=== PATIENT | female | born 1950 | race Caucasian/White ===

== ENCOUNTER 2018-07-30 22:24 | Emergency (ER) | payer OTHER ==
[2018-07-30 22:53] VITALS: BP 145/73; PULSE 66; TEMP 97.8; BMI 32.1
[2018-07-30] MEDS ORDERED: ONDANSETRON 4 MG/2 ML VIAL IVPUSH STA (23:53)
[2018-07-30] MEDS ORDERED: SODIUM CHLORIDE 1,000 ML IV STA (23:53)
--- NOTE | 2018-07-30 23:53 | PDOC ---
History of Present Illness - General History Source: Patient Exam Limitations: No Limitations - History of Present Illness Initial Comments: 07/30/18 23:54 The patient is a 67 year old female with a significant past medical history of hypertension who reports to the emergency department with nausea and vomiting for 2 days. The patient reports that she began to experience her onset of nausea yesterday while at home. She states that she had one episode of vomiting. The patient states that her symptoms worsened today and is associated by lower left quadrant abdominal pain. The patient reports that today she had 4 episodes of vomiting. She reports some associated chills with her symptoms. The patient denies any other symptoms. She denies any fever, diarrhea, constipation or urinary symptoms. She denies any chest pain, shortness of breath, headache or dizziness. She denies any other complaints. <Dre Whalen - Last Filed: 07/30/18 23:54> <Yari Briceno - Last Filed: 07/31/18 02:53> - General Chief Complaint: Nausea/Vomiting Stated Complaint: VOMITING Time Seen by Provider: 07/30/18 23:31 Past History <Dre Whalen - Last Filed: 07/30/18 23:54> - Suicide/Smoking/Psychosocial Hx Smoking History: Never smoked Have you smoked in the past 12 months: No Information on smoking cessation initiated: No Hx Alcohol Use: No Drug/Substance Use Hx: No <Yari Briceno - Last Filed: 07/31/18 02:53> - Past Medical History Allergies/Adverse Reactions: Allergies Allergy/AdvReac Type Severity Reaction Status Date / Time No Known Allergies Allergy Verified 07/30/18 22:54 Home Medications: Ambulatory Orders Acetaminophen [Mapap] 1,000 mg PO DAILY PRN 07/30/18 Atenolol [Tenormin -] 50 mg PO DAILY 07/30/18 Calcium Carbonate [Calcium] 1,000 mg PO DAILY 07/30/18 Cholecalciferol (Vitamin D3) [Vitamin D3] 1,000 unit PO DAILY 07/30/18 Levothyroxine [Synthroid -] 75 mcg PO SUMOTUWE 07/30/18 Levothyroxine [Synthroid -] 100 mcg PO THFRSA 07/30/18 Lisinopril [Prinivil -] 40 mg PO DAILY 01/15/19 Ondansetron [Zofran -] 8 mg PO TID PRN #21 tablet 07/31/18 Review of Systems - Review of Systems Able to Perform ROS?: Yes Comments:: 07/30/18 23:56 CONSTITUTIONAL:(+)chills. Absent: fever, no fatigue EYES: Absent: visual changes ENT: Absent: ear pain, no sore throat CARDIOVASCULAR: Absent: chest pain, no palpitations RESPIRATORY: Absent: cough, no SOB GI:(+)abdominal pain, nausea, vomiting Absent: no constipation, no diarrhea GENITOURINARY: Absent: dysuria, no frequency, no hematuria MUSKULOSKELETAL: Absent: back pain, no arthralgia, no myalgia SKIN: Absent: rash NEURO: Absent: headache <Dre Whalen - Last Filed: 07/30/18 23:54> *Physical Exam - Vital Signs Last Vital Signs Temp Pulse Resp BP Pulse Ox 97.8 F 66 19 145/73 98 07/30/18 22:24 07/30/18 22:24 07/30/18 22:24 07/30/18 22:24 07/30/18 22:24 - Physical Exam Comments: 07/30/18 23:56 GENERAL: Well-appearing, well-nourished. No apparent distress. HEENT: Normocephalic, atraumatic. PERRL, EOM intact. CARDIOVASCULAR: Normal S1, S2. Regular rate and rhythm. PULMONARY: Clear to auscultation bilaterally. ABDOMEN: (+)LLQ pain Soft, non-distended, non-tender. EXTREMITIES: Normal ROM in all four extremities. No gross deformities. SKIN: Warm, dry. No rash NEUROLOGICAL: No focal neurological deficits. <Dre Whalen - Last Filed: 07/30/18 23:54> - Vital Signs Last Vital Signs Temp Pulse Resp BP Pulse Ox 97.8 F 66 19 145/73 98 07/30/18 22:24 07/30/18 22:24 07/30/18 22:24 07/30/18 22:24 07/30/18 22:24 <Yari Briceno - Last Filed: 07/31/18 02:53> Moderate Sedation - Procedure Monitoring Vital Signs: Procedure Monitoring Vital Signs Temperature 97.8 F 07/30/18 22:24 Pulse Rate 66 07/30/18 22:24 Respiratory Rate 07/30/18 22:24 Blood Pressure 145/73 07/30/18 22:24 O2 Sat by Pulse Oximetry (%) 98 07/30/18 22:24 <Dre Whalen - Last Filed: 07/30/18 23:54> - Procedure Monitoring Vital Signs: Procedure Monitoring Vital Signs Temperature 97.8 F 07/30/18 22:24 Pulse Rate 66 07/30/18 22:24 Respiratory Rate 07/30/18 22:24 Blood Pressure 145/73 07/30/18 22:24 O2 Sat by Pulse Oximetry (%) 98 07/30/18 22:24 <Yari Briceno - Last Filed: 07/31/18 02:53> ED Treatment Course - LABORATORY CBC & Chemistry Diagram: 07/31/18 00:30 07/31/18 00:30 <Yari Briceno - Last Filed: 07/31/18 02:53> Medical Decision Making - Medical Decision Making 07/31/18 01:07 PSH c section,hernia repair,partial hysterectomy this 67 yo female developed abdominal pain and vomiting on Sunday evening. On Sunday the symptoms became worse and she vomited 4 times.she denies any diarrhea . she had c/o subjective fever 07/31/18 01:09 on exam there is LLQ tenderness and her labs show a leukocytosis. Urinalysis is negative 07/31/18 01:10 pt given anti emetics and fluids and ct scan abd/pel has been ordered,awaiting chemistries diag includes SBO,diverticulitis,colitis,appendicitis,gastritis 07/31/18 01:13 07/31/18 02:49 ct scan abd/pel: no colitis,no diverticular disease,no appendicitis, no SBO,s/ p hysterectomy, no masses,no absceses,liver nodule,renal cyst,lung atelectasis -there was some jejunum thickening c/w enteritis IMP ENTERITIS pt d/c home with instructions (spoke with the patient and her daughter)to return for any worsening symptoms,or if she develops fever <Yari Briceno - Last Filed: 07/31/18 02:53> *DC/Admit/Observation/Transfer - Attestations Scribe Attestion: 07/30/18 23:56 Documentation prepared by Dre Whalen, acting as medical i d sales for Yari Briceno MD. <Dre Whalen - Last Filed: 07/30/18 23:54> <Yari Briceno - Last Filed: 07/31/18 02:53> Diagnosis at time of Disposition: Enteritis - Discharge Dispostion Disposition: HOME Condition at time of disposition: Stable - Prescriptions Prescriptions: Ondansetron [Zofran -] 8 mg PO TID PRN #21 tablet PRN Reason: Nausea And/Or Vomiting - Referrals Referrals: ON STAFF,NOT [Primary Care Provider] - - Patient Instructions Printed Discharge Instructions: DI for Viral Gastroenteritis -- Adult Additional Instructions: please advance your diet as tolerated starting with fluids first then try solid foods please 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
[2018-07-31 00:36] LABS: BASO % 0.3 % (0-2.0); EOS % 0.1 % (0-4.5); HEMATOCRIT 39.8 % (32.4-45.2); HEMOGLOBIN 13.4 GM/dL (10.7-15.3); LYMPH % 7.2 % (8-40); MCHC 33.6 g/dl (32.0-36.0); MEAN CELL VOLUME 83.3 fl (80-96); MEAN PLT VOLUME 8.4 fl (7.5-11.1); NEUT % 90.4 % (42.8-82.8); PLATELET COUNT 347 K/MM3 (134-434); RBC 4.78 M/mm3 (3.60-5.2); WHITE BLOOD COUNT 13.4 K/mm3 (4.0-10.0)
[2018-07-31 00:43] LABS: URINE APPEARANCE CLOUDY; URINE BILIRUBIN NEGATIVE (<2.0 mg/dL); URINE COLOR YELLOW; URINE GLUCOSE (UA) NEGATIVE (NEGATIVE); URINE KETONE TRACE (NEGATIVE); URINE LEUK ESTERASE NEGATIVE (NEGATIVE); URINE NITRITE NEGATIVE (NEGATIVE); URINE PROTEIN NEGATIVE (NEGATIVE); URINE UROBILINOGEN NEGATIVE mg/dL (0.2-1.0)
[2018-07-31] MEDS ORDERED: ONDANSETRON 4 MG/2 ML VIAL ONE (00:46)
[2018-07-31 01:03] LABS: ALBUMIN 3.7 g/dl (3.4-5.0); ALK PHOS 94 U/L (45-117); ANION GAP 6 MMOL/L (8-16); BILIRUBIN,TOTAL 0.4 mg/dL (0.2-1); BLOOD UREA NITROGEN 11 mg/dL (7-18); CALCIUM 9.5 mg/dL (8.5-10.1); CHLORIDE 105 mmol/L (98-107); CO2 28 mmol/L (21-32); CREATININE 0.8 mg/dL (0.55-1.3); GLUCOSE,RANDOM 124 mg/dL (74-106); LIPASE 100 U/L (73-393); POTASSIUM 4.4 mmol/L (3.5-5.1); SGOT/AST 13 U/L (15-37); SGPT/ALT 29 U/L (13-61); SODIUM 139 mmol/L (136-145); TOT PROT 7.6 g/dl (6.4-8.2)
== END 2018-07-31 02:54 | disposition home or self-care (01) ==
LOC: JER 22:24
PROC: 3E033GC Introduction of Other Therapeutic Substance into Peripheral Vein, Percutaneous Approach (ICD-10-PCS; principal; 2018-07-30)
DX: K52.9 Noninfective gastroenteritis and colitis, unspecified (principal)
CPT/HCPCS: 36415; 74177-TC; 80053; 81003; 83690; 85025; 87086; 99281-25; 99283-25; J7030

== ENCOUNTER 2019-09-10 16:34 | Inpatient (IN) | payer OTHER ==
--- NOTE | 2019-09-10 16:41 | PDOC ---
Rapid Medical Evaluation Chief Complaint: Pain Time Seen by Provider: 09/10/19 16:38 Medical Evaluation: Allergies Allergy/AdvReac Type Severity Reaction Status Date / Time No Known Allergies Allergy Verified 07/30/18 22:54 09/10/19 16:40 have performed a brief in-person evaluation of this patient. The patient presents with a chief complaint of: Upper abd pain w/ n/v since last night. H/o HTN Pertinent physical exam findings:stable, well flora I have ordered the following:labs The patient will proceed to the ED for further evaluation. Discharge Disposition - Diagnosis Abdominal pain Qualifiers: Abdominal location: upper abdomen, unspecified Qualified Code(s): R10.10 - Upper abdominal pain, unspecified - Referrals - Patient Instructions - Post Discharge Activity
--- NOTE | 2019-09-10 17:13 | PDOC ---
History of Present Illness - General Chief Complaint: Pain Stated Complaint: ABD PAIN/VOMITING Time Seen by Provider: 09/10/19 16:38 History Source: Patient - History of Present Illness Initial Comments: 09/10/19 17:39 Ms. Castro is a 68 y/o woman w/hx HTN, hypothyroidism, remote hysterectomy p/w acute onset nausea/vomiting/abdominal pain since last night. She reports that at approx 1900 last night she began experiencing 6x nbnb vomiting alongside 10/ 10 cramping non-radiating abdominal pain. She reports that the pain continued this morning with approx 3x nbnb vomiting today. She reports that the pain has improved to 5/10. She reports being unable to tolerate po secondary to vomiting , but was able to take her BP medication today. She denies any diarrhea, fevers , chills, weakness, confusion. Past History - Past Medical History Allergies/Adverse Reactions: Allergies Allergy/AdvReac Type Severity Reaction Status Date / Time No Known Allergies Allergy Verified 07/30/18 22:54 Home Medications: Ambulatory Orders Atenolol [Tenormin -] 50 mg PO DAILY 07/30/18 Levothyroxine [Synthroid -] 75 mcg PO SUMOTUWE 07/30/18 Levothyroxine [Synthroid -] 100 mcg PO THFRSA 07/30/18 Triamterene/Hydrochlorothiazid [Triamterene-Hctz 37.5-25 mg Cp] 1 tab PO DAILY 09/10/19 COPD: No HTN: Yes Thyroid Disease: Yes (Hypothyroid) - Psycho Social/Smoking Cessation Hx Smoking History: Never smoked Have you smoked in the past 12 months: No Information on smoking cessation initiated: No Hx Alcohol Use: No Drug/Substance Use Hx: No Review of Systems - Review of Systems Able to Perform ROS?: Yes Comments:: 09/10/19 17:41 ROS: GENERAL/CONSTITUTIONAL: No fever or chills. No weakness. HEAD, EYES, EARS, NOSE AND THROAT: No change in vision. No ear pain or discharge. No sore throat. CARDIOVASCULAR: No chest pain or shortness of breath RESPIRATORY: No cough, wheezing, or hemoptysis. GASTROINTESTINAL: Nausea, vomiting, abdominal pain. No diarrhea or constipation. GENITOURINARY: No dysuria, frequency, or change in urination. MUSCULOSKELETAL: No joint or muscle swelling or pain. No neck or back pain. SKIN: No rash NEUROLOGIC: No headache, vertigo, loss of consciousness, or change in strength/ sensation. ENDOCRINE: No increased thirst. No abnormal weight change HEMATOLOGIC/LYMPHATIC: No anemia, easy bleeding, or history of blood clots. ALLERGIC/IMMUNOLOGIC: No hives or skin allergy. *Physical Exam - Vital Signs Last Vital Signs Temp Pulse Resp BP Pulse Ox 98.2 F 76 19 142/70 97 09/10/19 16:38 09/10/19 16:38 09/10/19 16:38 09/10/19 16:38 09/10/19 16:38 - Physical Exam 09/10/19 17:43 PE: GENERAL: Awake, alert, and fully oriented, in no acute distress HEAD: No signs of trauma, normocephalic, atraumatic EYES: PERRLA, EOMI, sclera anicteric, conjunctiva clear ENT: Auricles normal inspection, hearing grossly normal, nares patent, oropharynx clear without exudates. Moist mucosa NECK: Normal ROM, supple, no lymphadenopathy, JVD, or masses LUNGS: No distress, speaks full sentences, clear to auscultation bilaterally HEART: Regular rate and rhythm, normal S1 and S2, no murmurs, rubs or gallops, peripheral pulses normal and equal bilaterally. ABDOMEN: Epigastric TTP. Otherwise: Soft, nontender, normoactive bowel sounds. No guarding, no rebound. No masses EXTREMITIES : Normal inspection, Normal range of motion, no edema. No clubbing or cyanosis NEUROLOGICAL: Cranial nerves II through XII grossly intact. Normal speech, normal gait, no focal sensorimotor deficits SKIN: Warm, Dry, normal turgor, no rashes or lesions noted Heart Score/ECG Review - History History: Slightly suspicious - Electrocardiogram EKG: Normal - Age Age: >/= 65 - Risk Factors Risk Factors Heart Score: Yes Hx Hypertension, Yes Hx Obesity Based on the list above the patient has:: 1-2 risk factors - Troponin Troponin: </= normal limit - Score Heart Score - Total: 3 ED Treatment Course - LABORATORY CBC & Chemistry Diagram: 09/11/19 05:45 09/11/19 05:45 Medical Decision Making - Medical Decision Making 09/10/19 17:44 68F w/hx HTN, hypothyroidism, remote hysterectomy p/w acute onset nbnb N/V, epigastric abdominal pain since last night. Ddx includes ACS given age, risk factors. SBO unlikely given reassuring physical exam, tenderness located to epigastrum. GERD vs ulcer possible given location of pain, onset of symptoms. Pancreatitis possible given acute onset n/v w/abdominal pain. Plan: CBC CMP Lipase Cardiac profile EKG CXR 1L LR Pepcid Pitaalox Dispo: Pending labs, likely discharge --- Patient signed out during shift change Discharge - Discharge Information Problems reviewed: Yes Clinical Impression/Diagnosis: Dilated bowel Abdominal pain Qualifiers: Abdominal location: generalized Qualified Code(s): R10.84 - Generalized abdominal pain Condition: Improved Disposition: HOME - Admission No - Follow up/Referral - Patient Discharge Instructions - Post Discharge Activity
[2019-09-10] MEDS ORDERED: METOCLOPRAMIDE HCL INJECTION 10 MG/2 ML VIAL IVPUSH ONE (17:27)
[2019-09-10] MEDS ORDERED: MAG HYDROX/AL HYDROX/SIMETH -MYLANTA- ORAL SUSPENSION PO ONE (17:27)
[2019-09-10] MEDS ORDERED: LACTATED RINGERS SOLUTION 1000 ML INFUS.BAG IV ONE (17:27)
[2019-09-10 17:45] LABS: BASO % 0.3 % (0-2.0); EOS % 0.2 % (0-4.5); HEMATOCRIT 41.6 % (32.4-45.2); HEMOGLOBIN 13.7 GM/dL (10.7-15.3); LYMPH % 15.8 % (8-40); MCH 27.6 pg (25.7-33.7); MCHC 32.9 g/dl (32.0-36.0); MEAN PLT VOLUME 9.1 fl (7.5-11.1); MONO % 6.7 % (3.8-10.2); PLATELET COUNT 293 K/MM3 (134-434); RBC 4.94 M/mm3 (3.60-5.2); RDW 14.2 % (11.6-15.6); WHITE BLOOD COUNT 11.3 K/mm3 (4.0-10.0)
[2019-09-10 17:48] LABS: EPI CELLS 4.9 /HPF (0-5/HPF); HYALINE CASTS 1 /lpf (0-8); PH,URINE 7.5 (5.0-8.0); URINE APPEARANCE CLEAR; URINE BACTERIA 138.7 /hpf (NEGATIVE); URINE BILIRUBIN NEGATIVE (NEGATIVE); URINE COLOR YELLOW; URINE GLUCOSE (UA) NEGATIVE (NEGATIVE); URINE KETONE NEGATIVE (NEGATIVE); URINE LEUK ESTERASE TRACE (NEGATIVE); URINE NITRITE NEGATIVE (NEGATIVE); URINE PROTEIN NEGATIVE (NEGATIVE); URINE RBC 2 /hpf (0-4); URINE UROBILINOGEN 0.2 mg/dL (0.2-1.0); URINE WBC 7 /hpf (0-5)
[2019-09-10] MEDS ORDERED: METOCLOPRAMIDE HCL INJECTION 10 MG/2 ML VIAL ONE (17:56)
[2019-09-10] MEDS ORDERED: MAG HYDROX/AL HYDROX/SIMETH 30 ML UNIT-DOSE CUP ONE (17:56)
[2019-09-10 18:27] LABS: ALBUMIN 3.8 g/dl (3.4-5.0); ALK PHOS 95 U/L (45-117); ANION GAP 9 MMOL/L (8-16); BILIRUBIN,TOTAL 0.6 mg/dL (0.2-1); BLOOD UREA NITROGEN 12.3 mg/dL (7-18); CALCIUM 9.5 mg/dL (8.5-10.1); CHLORIDE 104 mmol/L (98-107); CO2 27 mmol/L (21-32); CREATININE 0.9 mg/dL (0.55-1.3); GLUCOSE,RANDOM 119 mg/dL (74-106); LIPASE 71 U/L (73-393); POTASSIUM 3.8 mmol/L (3.5-5.1); SGOT/AST 19 U/L (15-37); SGPT/ALT 33 U/L (13-61); SODIUM 139 mmol/L (136-145); TOT PROT 7.8 g/dl (6.4-8.2)
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
--- NOTE | 2019-09-10 22:18 | PDOC ---
*Physical Exam - Vital Signs Last Vital Signs Temp Pulse Resp BP Pulse Ox 97.6 F 58 L 17 133/82 96 09/10/19 19:15 09/10/19 19:15 09/10/19 19:15 09/10/19 19:15 09/10/19 19:15 ED Treatment Course - LABORATORY CBC & Chemistry Diagram: 09/10/19 16:45 09/10/19 16:45 - ADDITIONAL ORDERS Additional order review: Laboratory Results 09/10/19 09/10/19 17:00 16:45 Sodium 139 Potassium 3.8 Chloride 104 Carbon Dioxide 27 Anion Gap 9 BUN 12.3 Creatinine 0.9 Est GFR (CKD-EPI)AfAm 76.68 Est GFR (CKD-EPI)NonAf 66.16 Random Glucose 119 H Calcium 9.5 Total Bilirubin 0.6 AST 19 ALT 33 Alkaline Phosphatase 95 Creatine Kinase 71 Troponin I < 0.02 Total Protein 7.8 Albumin 3.8 Lipase 71 L Urine Color Yellow Urine Appearance Clear Urine pH 7.5 Ur Specific [place] 1.012 Urine Protein Negative Urine Glucose (UA) Negative Urine Ketones Negative Urine Blood Negative Urine Nitrite Negative Urine Bilirubin Negative Urine Urobilinogen 0.2 Ur Leukocyte Esterase Trace Urine WBC (Auto) 7 Urine RBC (Auto) 2 Urine Casts (Auto) 1 U Epithel Cells (Auto) 4.9 Urine Bacteria (Auto) 138.7 09/10/19 16:45 RBC 4.94 MCV 84.0 MCHC 32.9 RDW 14.2 MPV 9.1 Neutrophils % 77.0 Lymphocytes % 15.8 D Monocytes % 6.7 D Eosinophils % 0.2 D Basophils % 0.3 - Medications Given in the ED: ED Medications Discontinued Medications Generic Name Dose Route Start Last Admin Trade Name Freq PRN Reason Stop Dose Admin Al Hydroxide/Mg Hydroxide 30 ml 09/10/19 17:27 09/10/19 18:10 Mylanta Suspension - PO 09/10/19 17:28 30 ml ONCE ONE Administration Lactated Ringer's 1,000 ml 09/10/19 17:27 09/10/19 18:09 Lactated Ringers Solution IV 09/10/19 17:28 1,000 ml ONCE ONE Administration Metoclopramide HCl 10 mg 09/10/19 17:27 09/10/19 18:10 Reglan Injection - IVPUSH 09/10/19 17:28 10 mg ONCE ONE Administration Medical Decision Making - Medical Decision Making 09/10/19 22:16 Patient signed out to me pending CT scan of the abdomen and pelvis which is consistent with dilated jejunal loops, possibly indicative of partial SBO though similar in appearance to CT scan 1 year ago Patient has had no vomiting during my period of care in the emergency department Call placed to surgery, currently awaiting callback Patient admitted to medical service for further management Discharge - Discharge Information Problems reviewed: Yes Clinical Impression/Diagnosis: Dilated bowel Abdominal pain Qualifiers: Abdominal location: upper abdomen, unspecified Qualified Code(s): R10.10 - Upper abdominal pain, unspecified Condition: Fair - Admission Yes - Follow up/Referral Referrals: ON STAFF,NOT [Primary Care Provider] - - Patient Discharge Instructions Patient Printed Discharge Instructions: DI for Abdominal Pain-Adult Print Language: PANAMANIAN - Post Discharge Activity
[2019-09-10] MEDS: LACTATED RINGERS SOLUTION 1,000 ML IV SCH (23:39)
[2019-09-11] MEDS ORDERED: MAG HYDROX/AL HYDROX/SIMETH 30 ML UNIT-DOSE CUP ONE (00:35)
[2019-09-11] MEDS: MAG HYDROX/AL HYDROX/SIMETH -MYLANTA- ORAL SUSPENSION PO SCH ×2 (01:24→07:54)
[2019-09-11] MEDS: HEPARIN NA (PORCINE) 5,000 UNITS/ML 1ML VIAL SQ SCH ×3 (05:37→21:43)
[2019-09-11] MEDS: LACTATED RINGERS SOLUTION 1,000 ML IV SCH (05:47)
[2019-09-11] MEDS ORDERED: LEVOTHYROXINE SODIUM 100 MCG VIAL IVPUSH SCH (07:00)
[2019-09-11 07:06] LABS: BASO % 1.2 % (0-2.0); EOS % 1.8 % (0-4.5); HEMOGLOBIN 12.4 GM/dL (10.7-15.3); LYMPH % 32.3 % (8-40); MCH 27.9 pg (25.7-33.7); MCHC 33.6 g/dl (32.0-36.0); MEAN CELL VOLUME 83.2 fl (80-96); MEAN PLT VOLUME 9.2 fl (7.5-11.1); MONO % 10.2 % (3.8-10.2); NEUT % 54.5 % (42.8-82.8); PLATELET COUNT 257 K/MM3 (134-434); RBC 4.45 M/mm3 (3.60-5.2); RDW 14.1 % (11.6-15.6); WHITE BLOOD COUNT 9.5 K/mm3 (4.0-10.0)
[2019-09-11 08:10] LABS: BLOOD UREA NITROGEN 10.5 mg/dL (7-18); CALCIUM 9.1 mg/dL (8.5-10.1); CREATININE 0.9 mg/dL (0.55-1.3); POTASSIUM 3.5 mmol/L (3.5-5.1)
[2019-09-11] MEDS ORDERED: PT OWN MED DRAWER 7, Y5N ONE ×2 (08:40→10:32)
[2019-09-11] MEDS ORDERED: ACETAMINOPHEN 1000 MG/100 ML VIAL (NON FORMULARY) IVPB ONE (08:45)
[2019-09-11] MEDS: ATENOLOL 50 MG TABLET (FP) PO SCH (09:57)
--- NOTE | 2019-09-11 11:54 | EKG ---
Test Reason : Blood Pressure : / mmHG Vent. Rate : 058 BPM Atrial Rate : 058 BPM P-R Int : 178 ms QRS Dur : 080 ms QT Int : 426 ms P-R-T Axes : 057 021 023 degrees QTc Int : 418 ms SINUS BRADYCARDIA POSSIBLE LEFT ATRIAL ENLARGEMENT NONSPECIFIC T WAVE ABNORMALITY ABNORMAL ECG NO PREVIOUS ECGS AVAILABLE Confirmed by BETH MCGOWAN MD ([id number]) on 09/11/2019 11:53:49 AM Referred By: Confirmed By:BETH MCGOWAN MD
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
--- NOTE | 2019-09-11 13:00 | PN ---
Physical Exam: SUBJECTIVE: Patient seen and examined at the bedside. Stated she has headaches and mild abdominal discomfort. Stated she had 2 solid non-bloody bowel movements since she has been at the hospital. Denies n/v/c/d, cp, sob, fever, chills, dizziness, lightheadedness, visual changes, pain upon palpation of her head. OBJECTIVE: Vital Signs Period Temp Pulse Resp BP Sys/Stephens Pulse Ox Last 24 Hr 97.6 F-98.2 F 56-100 16-19 128-152/61-82 95-97 GENERAL: The patient is awake, alert, and fully oriented, in no acute distress. HEAD: Normal with no signs of trauma. No pain upon touching of the head. EYES: PERRL, extraocular movements intact, conjunctiva clear. ENT: Oropharynx clear without exudates, moist mucous membranes. LUNGS: Breath sounds equal, clear to auscultation bilaterally, no wheezes, no crackles, no accessory muscle use. HEART: Regular rate and rhythm, S1, S2 without murmur, rub,. ABDOMEN: Soft, nontender, nondistended, normoactive bowel sounds, no guarding, no rebound, no masses. EXTREMITIES: 2+ pulses, warm, well-perfused, no edema. NEUROLOGICAL: Cranial nerves II through XII grossly intact. 5/5 muscle strength bilaterally upper and lower extremities. PSYCH: Normal mood, normal affect. SKIN: Warm, dry, normal turgor. Laboratory Results - last 24 hr 09/10/19 09/10/19 09/10/19 16:45 16:45 17:00 WBC 11.3 H RBC 4.94 Hgb 13.7 Hct 41.6 MCV 84.0 MCH 27.6 MCHC 32.9 RDW 14.2 Plt Count 293 MPV 9.1 Absolute Neuts (auto) 8.7 H Neutrophils % 77.0 Lymphocytes % 15.8 D Monocytes % 6.7 D Eosinophils % 0.2 D Basophils % 0.3 Nucleated RBC % 0 Sodium 139 Potassium 3.8 Chloride 104 Carbon Dioxide 27 Anion Gap 9 BUN 12.3 Creatinine 0.9 Est GFR (CKD-EPI)AfAm 76.68 Est GFR (CKD-EPI)NonAf 66.16 POC Glucometer Random Glucose 119 H Calcium 9.5 Total Bilirubin 0.6 AST 19 ALT 33 Alkaline Phosphatase 95 Creatine Kinase 71 Troponin I < 0.02 C-Reactive Protein Total Protein 7.8 Albumin 3.8 Lipase 71 L Urine Color Yellow Urine Appearance Clear Urine pH 7.5 Ur Specific [place] 1.012 Urine Protein Negative Urine Glucose (UA) Negative Urine Ketones Negative Urine Blood Negative Urine Nitrite Negative Urine Bilirubin Negative Urine Urobilinogen 0.2 Ur Leukocyte Esterase Trace Urine WBC (Auto) 7 Urine RBC (Auto) 2 Urine Casts (Auto) 1 U Epithel Cells (Auto) 4.9 Urine Bacteria (Auto) 138.7 09/11/19 09/11/19 09/11/19 05:45 05:45 05:45 WBC 9.5 RBC 4.45 Hgb 12.4 Hct 37.0 MCV 83.2 MCH 27.9 MCHC 33.6 RDW 14.1 Plt Count 257 MPV 9.2 Absolute Neuts (auto) 5.2 Neutrophils % 54.5 D Lymphocytes % 32.3 D Monocytes % 10.2 Eosinophils % 1.8 D Basophils % 1.2 D Nucleated RBC % 0 Sodium 139 Potassium 3.5 Chloride 105 Carbon Dioxide 26 Anion Gap 9 BUN 10.5 Creatinine 0.9 Est GFR (CKD-EPI)AfAm 76.68 Est GFR (CKD-EPI)NonAf 66.16 POC Glucometer 94 Random Glucose 85 Calcium 9.1 Total Bilirubin AST ALT Alkaline Phosphatase Creatine Kinase Troponin I C-Reactive Protein 1.2 H Total Protein Albumin Lipase Urine Color Urine Appearance Urine pH Ur Specific [place] Urine Protein Urine Glucose (UA) Urine Ketones Urine Blood Urine Nitrite Urine Bilirubin Urine Urobilinogen Ur Leukocyte Esterase Urine WBC (Auto) Urine RBC (Auto) Urine Casts (Auto) U Epithel Cells (Auto) Urine Bacteria (Auto) 09/11/19 12:15 WBC RBC Hgb Hct MCV MCH MCHC RDW Plt Count MPV Absolute Neuts (auto) Neutrophils % Lymphocytes % Monocytes % Eosinophils % Basophils % Nucleated RBC % Sodium Potassium Chloride Carbon Dioxide Anion Gap BUN Creatinine Est GFR (CKD-EPI)AfAm Est GFR (CKD-EPI)NonAf POC Glucometer 102 Random Glucose Calcium Total Bilirubin AST ALT Alkaline Phosphatase Creatine Kinase Troponin I C-Reactive Protein Total Protein Albumin Lipase Urine Color Urine Appearance Urine pH Ur Specific [place] Urine Protein Urine Glucose (UA) Urine Ketones Urine Blood Urine Nitrite Urine Bilirubin Urine Urobilinogen Ur Leukocyte Esterase Urine WBC (Auto) Urine RBC (Auto) Urine Casts (Auto) U Epithel Cells (Auto) Urine Bacteria (Auto) Active Medications Generic Name Dose Route Start Last Admin Trade Name Joanne PRN Reason Stop Dose Admin Al Hydroxide/Mg Hydroxide 30 ml 09/11/19 06:47 Mylanta Oral Suspension - PO Q6HPO BERNY Atenolol 50 mg 09/11/19 10:00 09/11/19 09:57 Tenormin - PO 50 mg DAILY BERNY Administration Heparin Sodium (Porcine) 5,000 unit 09/11/19 06:00 09/11/19 05:37 Heparin - SQ 5,000 unit TID BERNY Administration Lactated Ringer's 1,000 mls @ 83 mls/hr 09/10/19 23:15 09/11/19 05:47 Lactated Ringers Solution IV 83 mls/hr ASDIR BERNY Administration Levothyroxine Sodium 50 mcg 09/11/19 07:00 09/11/19 09:56 Synthroid Injection - IVPUSH 50 mcg DAILY@0700 BERNY Administration Triamterene/HCTZ 1 cap 09/11/19 10:00 Dyazide 25/37.5mg PO DAILY [facility] ASSESSMENT/PLAN: Socorro Castro is a 68 female with a past medical history HTN, Hypothyroidism, prediabetes admitted for abdominal pain likely due to partial small bowel obstruction. Partial SBO - in history of abdominal surgeries adhesions may be likely - CT Abdomen/Pelvis shows mild dilatation of several jejunal bowel loops is noted within the mid and left lateral thirds of the abdomen and pelvis suggestively of a mild partial obstruction ? persistent vs recurrent. - clear liquids - GI consulted, recs appreciated, CT enterography in AM - General Surgery consulted, recs appreciated, spoken with Dr Haque - leukocytosis likely in setting of reactivity due to partial obstruction, currently resolved Asymptomatic Bacteriuria - Denies any urgency, frequency, dysuria, hematuria. Has no suprapubic pain on exam - Will continue to monitor, does not currently need antibiotic treatment Atrial dilation noted on CT - can follow up with PCP and cardiology outpatient to obtain echocardiogram - currently no cardiac symptoms Hypothyroidism - continue home synthroid Prediabetes - BGM - ISS - continue workup with PCP HTN - continue home atenolol and HTCZ/triamterene DVT - Heparin 5000 units SQ TID FEN - no standing fluids - continue to monitor electrolytes and replete as necessary - clear liquids Dispo - continue to monitor on med-surg Visit type - Emergency Visit Emergency Visit: Yes ED Registration Date: 09/10/19 Care time: The patient presented to the Emergency Department on the above date and was hospitalized for further evaluation of their emergent condition. - New Patient This patient is new to me today: Yes Date on this admission: 09/11/19 - Critical Care Critical Care patient: No
[2019-09-11] MEDS: MAG HYDROX/AL HYDROX/SIMETH 30 ML UNIT-DOSE CUP PO SCH ×2 (13:08→17:54)
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
[2019-09-11] MEDS: LEVOTHYROXINE NA 100 MCG TABLET (FP) PO SCH (14:21)
[2019-09-11] MEDS: TRIAMTERENE AND HCTZ - 37.5 MG/25 MG CAPSULE PO SCH (16:02)
--- NOTE | 2019-09-11 19:13 | PN ---
Teaching Attending Note Name of Resident: Juventino Leavitt ATTENDING PHYSICIAN STATEMENT I saw and evaluated the patient. I reviewed the resident's note and discussed the case with the resident. I agree with the resident's findings and plan as documented. SUBJECTIVE: Patient is comfortable, no fever or chills. Vital Signs Temperature 97.3 F L 09/11/19 15:00 Pulse Rate 52 L 09/11/19 15:00 Respiratory Rate 18 09/11/19 15:00 Blood Pressure 115/65 09/11/19 15:00 O2 Sat by Pulse Oximetry (%) 96 09/11/19 09:00 Initial Vital Signs Temp Pulse Resp BP Pulse Ox 98.2 F 76 19 142/70 97 09/10/19 16:38 09/10/19 16:38 09/10/19 16:38 09/10/19 16:38 09/10/19 16:38 GENERAL: The patient is awake, alert, and fully oriented, in no acute distress. HEAD: Normal with no signs of trauma. EYES: PERRL, extraocular movements intact, sclera anicteric, conjunctiva clear. ENT: Ears normal, oropharynx clear without exudates, moist mucous membranes. NECK: Trachea midline, full range of motion, supple. LUNGS: Breath sounds equal, clear to auscultation bilaterally, no wheezes, no crackles, no accessory muscle use. HEART: Regular rate and rhythm, S1, S2 without murmur, rub or gallop. ABDOMEN: Soft, NT,ND, normoactive bowel sounds, no guarding, no rebound, no hepatosplenomegaly, no masses. EXTREMITIES: 2+ pulses, warm, well-perfused, no edema. NEUROLOGICAL: Cranial nerves II through XII grossly intact. Normal speech, gait not observed. PSYCH: Normal mood, normal affect. SKIN: Warm, dry, normal turgor, no rashes or lesions noted CBCD WBC 9.5 K/mm3 (4.0-10.0) 09/11/19 05:45 RBC 4.45 M/mm3 (3.60-5.2) 09/11/19 05:45 Hgb 12.4 GM/dL (10.7-15.3) 09/11/19 05:45 Hct 37.0 % (32.4-45.2) 09/11/19 05:45 MCV 83.2 fl (80-96) 09/11/19 05:45 MCHC 33.6 g/dl (32.0-36.0) 09/11/19 05:45 RDW 14.1 % (11.6-15.6) 09/11/19 05:45 Plt Count 257 K/MM3 (134-434) 09/11/19 05:45 MPV 9.2 fl (7.5-11.1) 09/11/19 05:45 CMP Sodium 139 mmol/L (136-145) 09/11/19 05:45 Potassium 3.5 mmol/L (3.5-5.1) 09/11/19 05:45 Chloride 105 mmol/L (98-107) 09/11/19 05:45 Carbon Dioxide 26 mmol/L (21-32) 09/11/19 05:45 Anion Gap 9 MMOL/L (8-16) 09/11/19 05:45 BUN 10.5 mg/dL (7-18) 09/11/19 05:45 Creatinine 0.9 mg/dL (0.55-1.3) 09/11/19 05:45 Random Glucose 85 mg/dL (74-106) 09/11/19 05:45 Calcium 9.1 mg/dL (8.5-10.1) 09/11/19 05:45 Total Bilirubin 0.6 mg/dL (0.2-1) 09/10/19 16:45 AST 19 U/L (15-37) 09/10/19 16:45 ALT 33 U/L (13-61) 09/10/19 16:45 Alkaline Phosphatase 95 U/L (45-117) 09/10/19 16:45 Total Protein 7.8 g/dl (6.4-8.2) 09/10/19 16:45 Albumin 3.8 g/dl (3.4-5.0) 09/10/19 16:45 CARDIAC ENZYMES Creatine Kinase 71 U/L (26-192) 09/10/19 16:45 Troponin I < 0.02 ng/ml (0.00-0.05) 09/10/19 16:45 Current Medications Generic Name Dose Route Start Last Admin Trade Name Freq PRN Reason Stop Dose Admin Al Hydroxide/Mg Hydroxide 30 ml 09/11/19 06:47 09/11/19 17:54 Mylanta Oral Suspension - PO 30 ml Q6HPO BERNY Administration Atenolol 50 mg 09/11/19 10:00 09/11/19 09:57 Tenormin - PO 50 mg DAILY BERNY Administration Heparin Sodium (Porcine) 5,000 unit 09/11/19 06:00 09/11/19 14:21 Heparin - SQ 5,000 unit TID BERNY Administration Levothyroxine Sodium 75 mcg 09/14/19 07:00 Synthroid - PO SUMOTUWE BERNY Levothyroxine Sodium 100 mcg 09/11/19 13:15 09/11/19 14:21 Synthroid - PO Not Given ThFrSa@0700 BERNY Triamterene/HCTZ 1 cap 09/11/19 10:00 09/11/19 16:02 Dyazide 25/37.5mg PO 1 cap DAILY BERNY Administration Home Medications Medication Instructions Recorded Acetaminophen [Mapap] 1,000 mg PO DAILY PRN 07/30/18 Atenolol [Tenormin -] 50 mg PO DAILY 07/30/18 Calcium Carbonate [Calcium] 1,000 mg PO DAILY 07/30/18 Cholecalciferol (Vitamin D3) 1,000 unit PO DAILY 07/30/18 [Vitamin D3] Levothyroxine [Synthroid -] 75 mcg PO SUMOTUWE 07/30/18 Levothyroxine [Synthroid -] 100 mcg PO THFRSA 07/30/18 Lisinopril [Prinivil -] 40 mg PO DAILY 07/30/18 Ondansetron [Zofran -] 8 mg PO TID PRN #21 tablet 07/31/18 Triamterene/Hydrochlorothiazid 1 tab PO DAILY 09/10/19 [Triamterene-Hctz 37.5-25 mg Cp] Assessment and plan: Patient is a 68 female with a Pmhx of HTN, Hypothyroidism, prediabetes admitted for abdominal pain likely due to partial small bowel obstruction. Partial SBO ;clear liquids; Gi on the case, recs CT enterography in AM, sx is on the case dr anderson Asymptomatic Bacteriuria Atrial dilation noted on CT Hypothyroidism: continue home synthroid HTN: continue home atenolol and HTCZ/triamterene DVT: Heparin 5000 units SQ TID
[2019-09-12] MEDS: MAG HYDROX/AL HYDROX/SIMETH 30 ML UNIT-DOSE CUP PO SCH ×2 (00:31→11:56)
[2019-09-12] MEDS: LEVOTHYROXINE NA 100 MCG TABLET (FP) PO SCH ×2 (05:54→12:07)
[2019-09-12] MEDS: HEPARIN NA (PORCINE) 5,000 UNITS/ML 1ML VIAL SQ SCH ×2 (05:54→13:43)
--- NOTE | 2019-09-12 09:31 | PN ---
Teaching Attending Note Name of Resident: Juventino Leavitt ATTENDING PHYSICIAN STATEMENT I saw and evaluated the patient. I reviewed the resident's note and discussed the case with the resident. I agree with the resident's findings and plan as documented. SUBJECTIVE: OBJECTIVE: Vital Signs Temperature 98.1 F 09/12/19 06:00 Pulse Rate 56 L 09/12/19 06:00 Respiratory Rate 18 09/12/19 06:00 Blood Pressure 121/58 L 09/12/19 06:00 O2 Sat by Pulse Oximetry (%) 96 09/11/19 21:00 CBCD WBC 9.5 K/mm3 (4.0-10.0) 09/11/19 05:45 RBC 4.45 M/mm3 (3.60-5.2) 09/11/19 05:45 Hgb 12.4 GM/dL (10.7-15.3) 09/11/19 05:45 Hct 37.0 % (32.4-45.2) 09/11/19 05:45 MCV 83.2 fl (80-96) 09/11/19 05:45 MCHC 33.6 g/dl (32.0-36.0) 09/11/19 05:45 RDW 14.1 % (11.6-15.6) 09/11/19 05:45 Plt Count 257 K/MM3 (134-434) 09/11/19 05:45 MPV 9.2 fl (7.5-11.1) 09/11/19 05:45 CMP Sodium 139 mmol/L (136-145) 09/11/19 05:45 Potassium 3.5 mmol/L (3.5-5.1) 09/11/19 05:45 Chloride 105 mmol/L (98-107) 09/11/19 05:45 Carbon Dioxide 26 mmol/L (21-32) 09/11/19 05:45 Anion Gap 9 MMOL/L (8-16) 09/11/19 05:45 BUN 10.5 mg/dL (7-18) 09/11/19 05:45 Creatinine 0.9 mg/dL (0.55-1.3) 09/11/19 05:45 Random Glucose 85 mg/dL (74-106) 09/11/19 05:45 Calcium 9.1 mg/dL (8.5-10.1) 09/11/19 05:45 Total Bilirubin 0.6 mg/dL (0.2-1) 09/10/19 16:45 AST 19 U/L (15-37) 09/10/19 16:45 ALT 33 U/L (13-61) 09/10/19 16:45 Alkaline Phosphatase 95 U/L (45-117) 09/10/19 16:45 Total Protein 7.8 g/dl (6.4-8.2) 09/10/19 16:45 Albumin 3.8 g/dl (3.4-5.0) 09/10/19 16:45 CARDIAC ENZYMES Creatine Kinase 71 U/L (26-192) 09/10/19 16:45 Troponin I < 0.02 ng/ml (0.00-0.05) 09/10/19 16:45 Current Medications Generic Name Dose Route Start Last Admin Trade Name Freq PRN Reason Stop Dose Admin Al Hydroxide/Mg Hydroxide 30 ml 09/11/19 06:47 09/12/19 00:31 Mylanta Oral Suspension - PO 30 ml Q6HPO BERNY Administration Atenolol 50 mg 09/11/19 10:00 09/11/19 09:57 Tenormin - PO 50 mg DAILY BERNY Administration Heparin Sodium (Porcine) 5,000 unit 09/11/19 06:00 09/12/19 05:54 Heparin - SQ 5,000 unit TID BERNY Administration Levothyroxine Sodium 75 mcg 09/14/19 07:00 Synthroid - PO SUMOTUWE [facility] Levothyroxine Sodium 100 mcg 09/11/19 13:15 09/12/19 05:54 Synthroid - PO 100 mcg ThFrSa@0700 BERNY Administration Triamterene/HCTZ 1 cap 09/11/19 10:00 09/11/19 16:02 Dyazide 25/37.5mg PO 1 cap DAILY BERNY Administration Home Medications Medication Instructions Recorded Atenolol [Tenormin -] 50 mg PO DAILY 07/30/18 Levothyroxine [Synthroid -] 75 mcg PO SUMOTUWE 07/30/18 Levothyroxine [Synthroid -] 100 mcg PO THFRSA 07/30/18 Triamterene/Hydrochlorothiazid 1 tab PO DAILY 09/10/19 [Triamterene-Hctz 37.5-25 mg Cp] CT enterography which noted mild small bowel dilation with transition point with no discrete masses or polyps. Assessment and plan: Patient is a 68 female with a Pmhx of HTN, Hypothyroidism, prediabetes admitted for abdominal pain likely due to partial small bowel obstruction. Partial SBO : advance diet diet . as per Gi , patient can be discharged with follow up. CT enterography as above Asymptomatic Bacteriuria Atrial dilation noted on CT Hypothyroidism: continue home synthroid HTN: continue home atenolol and HTCZ/triamterene dcpatient home
[2019-09-12 10:45] VITALS: BP 143/71; PULSE 47; TEMP 98
[2019-09-12] MEDS ORDERED: PT OWN MED DRAWER 7, Y5N ONE (10:47)
[2019-09-12] MEDS: TRIAMTERENE AND HCTZ - 37.5 MG/25 MG CAPSULE PO SCH (10:50)
[2019-09-12] MEDS: ATENOLOL 50 MG TABLET (FP) PO SCH (10:50)
[2019-09-12 12:49] VITALS: BMI 31.0
--- NOTE | 2019-09-12 16:03 | DS ---
Physical Exam: SUBJECTIVE: Patient seen and examined at the bedside. Patient stated she has had bowel movements and has been tolerating diet well. She denied fever, chills , cp, sob, abd pain, n/v/c/d, headaches, dizziness, lightheadedness, dysuria, hematuria. OBJECTIVE: Vital Signs Period Temp Pulse Resp BP Sys/Stephens Pulse Ox Last 24 Hr 98 F-98.3 F 47-57 16-20 121-143/56-73 96 PHYSICAL EXAM GENERAL: The patient is awake, alert, and fully oriented, in no acute distress. HEAD: Normal with no signs of trauma. EYES: PERRL, extraocular movements intact, conjunctiva clear. ENT: Oropharynx clear without exudates, moist mucous membranes. LUNGS: Breath sounds equal, clear to auscultation bilaterally, no wheezes, no crackles, no accessory muscle use. HEART: Regular rate and rhythm, S1, S2 without murmur, rub,. ABDOMEN: Soft, nontender, nondistended, normoactive bowel sounds, no guarding, no rebound, no masses. EXTREMITIES: 2+ pulses, warm, well-perfused, no edema. NEUROLOGICAL: Cranial nerves II through XII grossly intact. 5/5 muscle strength bilaterally upper and lower extremities. PSYCH: Normal mood, normal affect. SKIN: Warm, dry, normal turgor. LABS Laboratory Results - last 24 hr 09/11/19 09/11/19 09/12/19 17:13 23:45 06:33 POC Glucometer 94 100 95 09/12/19 11:31 POC Glucometer 88 HOSPITAL COURSE: Socorro Castro is a 68 female with a past medical history HTN, Hypothyroidism, prediabetes admitted for abdominal pain likely due to partial small bowel obstruction. Patient had CT Abd/pelvis which noted mild dilatation of several jejunal bowel loops is noted within the mid and left lateral thirds of the abdomen and pelvis suggestively of a mild partial obstruction ? persistent vs recurrent. Also noted on CT was a ventral hernia. Patient had several bowel movements, pain resolved, and patient was tolerating diet well. GI evaluated the patient and advised to have CT enterography which noted mild small bowel dilation with transition point with no discrete masses or polyps. Surgery had seen the patient and stated there no need for acute surgical intervention. Patient was advised to follow up with GI and her PCP to determine if she will require any surgical intervention for hernias and bowel loop dilation. Patient was advised to eat slowly, not too overconsume, and to alternate solids and liquids. On CT the patient was noted to have atrial dilation and was advised to obtain an echocardiogram outpatient. Patient and family member at the bedside were advised of the plan, were in agreement, and reiterated it. Patient was discharged in stable medical condition. Date of Admission:09/10/19 Date of Discharge: 09/12/19 Minutes to complete discharge: 35 Discharge Summary Problems reviewed: Yes Reason For Visit: ABD PAIN Condition: Improved - Instructions Diet, Activity, Other Instructions: You were admitted for abdominal pain which was likely due to an obstruction in your bowels that has resolved. A CT of your abdomen did show some enlargement of your bowels which was suggestive of an obstruction. You were seen by the litigation paralegal who recommended restarting your diet slowly and a CT scan of your intestines which showed no masses or polyps. You were seen by a general surgeon who stated that there was no acute need for surgery. On your CT scan it was noted that you had some mild dilatation of your heart for which you are recommended to have an echocardiogram (ultrasound of the heart) which you can schedule with your primary care physician. It was also noted that you have a small hernia for which you can follow up with your primary care doctor to determine if you would need to speak with a surgeon. MEDICATIONS You do not have any new medications. Continue to take all of your home medications as prescribed. REFERRALS Please follow up with your primary care doctor, Dr. Greenberg, within 1 week. Please follow up with the litigation paralegal, Dr. Locke, within 2 weeks. SPECIAL INSTRUCTIONS Make sure to eat slowly and not to eat too much. Follow up with all of your physicians. If you have any further episodes of abdominal pain, vomiting, diarrhea, long periods of constipation, fevers, chest pain, shortness of breath, or any other general feelings of unwellness, please call 911 or go to your nearest emergency room. Referrals: Patricia Greenberg [Other] - 1 Week Javi Locke DO [Staff Physician] - 2 Weeks Disposition: HOME - Home Medications Comprehensive Discharge Medication List: Ambulatory Orders Atenolol [Tenormin -] 50 mg PO DAILY 07/30/18 Levothyroxine [Synthroid -] 75 mcg PO SUMOTUWE 07/30/18 Levothyroxine [Synthroid -] 100 mcg PO THFRSA 07/30/18 Triamterene/Hydrochlorothiazid [Triamterene-Hctz 37.5-25 mg Cp] 1 tab PO DAILY 09/10/19 Problem List - Problems (1) Class 1 obesity due to excess calories without serious comorbidity with body mass index (BMI) of 31.0 to 31.9 in adult Code(s): E66.09 - OTHER OBESITY DUE TO EXCESS CALORIES; Z68.31 - BODY MASS INDEX (BMI) 31.0-31.9, ADULT (2) HTN (hypertension) Code(s): I10 - ESSENTIAL (PRIMARY) HYPERTENSION Qualifiers: Hypertension type: essential hypertension Qualified Code(s): I10 - Essential (primary) hypertension (3) Hypothyroidism Code(s): E03.9 - HYPOTHYROIDISM, UNSPECIFIED Qualifiers: Hypothyroidism type: unspecified Qualified Code(s): E03.9 - Hypothyroidism , unspecified (4) Abdominal pain Code(s): R10.9 - UNSPECIFIED ABDOMINAL PAIN Qualifiers: Abdominal location: upper abdomen, unspecified Qualified Code(s): R10.10 - Upper abdominal pain, unspecified (5) Nausea & vomiting Code(s): R11.2 - NAUSEA WITH VOMITING, UNSPECIFIED Qualifiers: Vomiting type: unspecified Vomiting Intractability: non-intractable Qualified Code(s): R11.2 - Nausea with vomiting, unspecified (6) Partial small bowel obstruction Code(s): K56.600 - PARTIAL INTESTINAL OBSTRUCTION, UNSPECIFIED TO CAUSE This patient is new to me today: No Emergency Visit: Yes ED Registration Date: 09/10/19 Care time: The patient presented to the Emergency Department on the above date and was hospitalized for further evaluation of their emergent condition. Critical Care patient: No - Discharge Referral Referred to [facility] Yes Physician Referral: Martin Locke DO (GI) ATTENDING PHYSICIAN STATEMENT I saw and evaluated the patient. I reviewed the resident's note and discussed the case with the resident. I agree with the resident's findings and plan as documented. SUBJECTIVE: OBJECTIVE: ASSESSMENT AND PLAN:
[2019-09-14] MEDS ORDERED: LEVOTHYROXINE NA 75 MCG TABLET (FP) PO SCH (07:00)
== END 2019-09-12 15:31 | disposition home or self-care (01) | DRG 390 ==
LOC: JER 16:34 → JERBED 22:18 → J8W 09-11 04:38
PROVIDERS: ADMIT Internal Medicine; ATTEND Internal Medicine
DX: K56.600 Partial intestinal obstruction, unspecified as to cause (principal); E66.9 Obesity, unspecified; Z68.31 Body mass index [BMI] 31.0-31.9, adult; I10 Essential (primary) hypertension; E03.9 Hypothyroidism, unspecified; R73.03 Prediabetes; R82.71 Bacteriuria; D72.829 Elevated white blood cell count, unspecified
CPT/HCPCS: 36415; 71045-TC-FY; 74019-TC-FY; 74177-TC; 76705-TC; 80048; 80053; 81003; 82550; 82962; 83690; 84484; 85025; 86140; 93005; 93010; 99285-25; J0131; J1644; Q9967

== ENCOUNTER 2022-11-15 17:12 | Emergency (ER) | payer OTHER ==
[2022-11-15 17:23] VITALS: TEMP 97.8; BMI 32.4
[2022-11-15] MEDS ORDERED: FAMOTIDINE 20 MG/50 ML IVPB 20 MG/50 ML MG IVPB ONE ×2 (18:18→19:28)
[2022-11-15] MEDS ORDERED: LACTATED RINGERS SOLUTION 1000 ML INFUS.BAG IV ONE (18:18)
[2022-11-15] MEDS ORDERED: ACETAMINOPHEN 1000 MG/100 ML BAG IVPB ONE (18:18)
[2022-11-15] MEDS ORDERED: ONDANSETRON 4 MG/2 ML VIAL IVPUSH ONE (18:18)
[2022-11-15 19:26] LABS: BASO % 0.7 % (0-2.0); EOS % 0.8 % (0-4.5); HEMATOCRIT 41.2 % (32.4-45.2); HEMOGLOBIN 13.9 GM/dL (10.7-15.3); LYMPH % 13.2 % (8-40); MCH 27.8 pg (25.7-33.7); MCHC 33.6 g/dl (32.0-36.0); MEAN CELL VOLUME 82.7 fl (80-96); MEAN PLT VOLUME 8.7 fl (7.5-11.1); MONO % 4.2 % (3.8-10.2); NEUT % 81.1 % (42.8-82.8); PLATELET COUNT 267 10^3/uL (134-434); RBC 4.98 M/mm3 (3.60-5.2); WHITE BLOOD COUNT 12.8 K/mm3 (4.0-10.0)
[2022-11-15] MEDS ORDERED: ACETAMINOPHEN INJECTION 100 ML IVPB ONE (19:27)
[2022-11-15] MEDS ORDERED: ONDANSETRON 4 MG/2 ML VIAL ONE (19:28)
[2022-11-15 19:40] LABS: PROTHROMBIN TIME (PATIENT) 11.6 SEC (9.7-13.0)
[2022-11-15 19:43] LABS: ACTIVATED PTT 33.8 SECONDS (25.2-36.5)
[2022-11-15 19:44] LABS: POTASSIUM 3.9 mmol/L (3.5-5.1)
[2022-11-15 19:46] LABS: CALCIUM 9.8 mg/dL (8.5-10.1)
[2022-11-15 19:47] LABS: ALBUMIN 4.2 g/dl (3.4-5.0); BLOOD UREA NITROGEN 16.1 mg/dL (7-18); MAGNESIUM 2.2 mg/dL (1.8-2.4)
[2022-11-15 19:50] LABS: CREATININE 0.9 mg/dL (0.55-1.3)
[2022-11-15 19:51] LABS: BILIRUBIN,TOTAL 0.5 mg/dL (0.2-1)
[2022-11-15 19:53] LABS: TOT PROT 7.9 g/dl (6.4-8.2)
[2022-11-15 20:15] VITALS: BP 160/67; PULSE 58; RESP 16
== END 2022-11-15 21:11 | disposition home or self-care (01) ==
LOC: JER 17:12
PROC: 3E033GC Introduction of Other Therapeutic Substance into Peripheral Vein, Percutaneous Approach (ICD-10-PCS; principal; 2022-11-15)
PROC: 3E033GC Introduction of Other Therapeutic Substance into Peripheral Vein, Percutaneous Approach (ICD-10-PCS; 2022-11-15)
PROC: 3E033GC Introduction of Other Therapeutic Substance into Peripheral Vein, Percutaneous Approach (ICD-10-PCS; 2022-11-15)
DX: R10.84 Generalized abdominal pain (principal); R14.1 Gas pain; R11.2 Nausea with vomiting, unspecified; Z20.822 Contact with and (suspected) exposure to COVID-19
CPT/HCPCS: 0241U-QW; 36415; 80053; 83605; 83690; 83735; 84484; 85025; 85610; 85730; 86850; 86900; 86901; 93005; 93010; 99284-25